=== PATIENT | female | born 1990 | race Caucasian/White ===

== ENCOUNTER 2019-06-16 14:50 | Emergency (ER) | payer MEDICAID ==
[~2019-06-16] VITALS: Ht 167.6 cm; Wt 70.5 kg
[2019-06-16] MEDS ORDERED: ketorolac tromethamine 15mg/ml inj. IM ONE (15:25)
[2019-06-16] MEDS ORDERED: triamcinolone acetonide 40mg/ml inj IM ONE (15:25)
[2019-06-16] MEDS ORDERED: LIDO700A32 TOP (15:38)
[2019-06-16 15:52] VITALS: BP 155/65
== END 2019-06-16 15:52 | disposition home or self-care (01) ==
LOC: ER 14:51
DX: M54.41 Lumbago with sciatica, right side (principal); Z79.899 Other long term (current) drug therapy
CPT/HCPCS: 96372; 99283; J1885; J3301

== ENCOUNTER 2019-12-10 09:08 | Emergency (ER) | payer MEDICAID ==
[~2019-12-10] VITALS: Ht 165.1 cm; Wt 68.2 kg
[~2019-12-10 09:08] MED LIST: LIDO700A32 TOP
[2019-12-10 09:12] VITALS: BP 125/73
[2019-12-10] MEDS ORDERED: ketorolac trometh inj. 60 MG/2 ML VIAL IM ONE (09:30)
[2019-12-10] MEDS ORDERED: HYDR-3965 PO (09:37)
[2019-12-10] MEDS ORDERED: ACYC-202 PO (09:37)
== END 2019-12-10 09:55 | disposition home or self-care (01) ==
LOC: ER 09:08
DX: B02.9 Zoster without complications (principal); M54.6 Pain in thoracic spine; Z79.899 Other long term (current) drug therapy
CPT/HCPCS: 96372; 99283; J1885

== ENCOUNTER 2021-11-07 09:10 | Emergency (ER) | payer MEDICAID ==
[~2021-11-07] VITALS: Ht 167.6 cm; Wt 77.3 kg
[2021-11-07] MEDS ORDERED: metoclopramide 5 mg/ml inj IV ONE (10:25)
[2021-11-07] MEDS ORDERED: LORazepam 2 mg/ml vial IV ONE (10:25)
[2021-11-07] MEDS ORDERED: dexamethasone sod phosphate 10mg/ml inj IV STA (10:25)
[2021-11-07] MEDS ORDERED: normal saline 1000ML IV soln IVB ONE (10:25)
--- NOTE | 2021-11-07 11:00 | NUR ---
Pt to CT
--- NOTE | 2021-11-07 11:30 | NUR ---
Pt back from CT. Warm blankets given, fluids restarted.
[2021-11-07] MEDS ORDERED: ketorolac trometh. 30mg/ml inj. IV ONE (12:20)
[2021-11-07 13:09] VITALS: BP 104/64
== END 2021-11-07 13:10 | disposition home or self-care (01) ==
LOC: ER 09:10
DX: G43.109 Migraine with aura, not intractable, without status migrainosus (principal)
CPT/HCPCS: 70450; 96361; 96365; 96375; 99284; J1100; J1885; J2060; J2765; J7030

== ENCOUNTER 2021-11-26 09:12 | Emergency (ER) | payer MEDICAID ==
[~2021-11-26] VITALS: Ht 167.6 cm; Wt 83.4 kg
[2021-11-26 10:17] VITALS: BP 122/82
[2021-11-26] MEDS ORDERED: GUAI120015 PO (10:29)
[2021-11-26] MEDS ORDERED: SODI30SP3 BOTHNARES (10:29)
== END 2021-11-26 11:02 | disposition home or self-care (01) ==
LOC: ER 09:12
DX: J06.9 Acute upper respiratory infection, unspecified (principal); Z20.822 Contact with and (suspected) exposure to COVID-19; R05.9 Cough, unspecified; R06.02 Shortness of breath; R50.9 Fever, unspecified; G43.909 Migraine, unspecified, not intractable, without status migrainosus; Z72.89 Other problems related to lifestyle; Z79.899 Other long term (current) drug therapy
CPT/HCPCS: 87635; 99283; C9803

== ENCOUNTER 2022-11-23 09:09 | Emergency (ER) | payer MEDICAID ==
[~2022-11-23] VITALS: Ht 167.6 cm; Wt 73.4 kg
[~2022-11-23 09:09] MED LIST changes: +GUAI120015 PO; +SODI30SP3 BOTHNARES
[2022-11-23] MEDS ORDERED: methylPREDNISolone sod succ 125mg/2ml vial IV ONE (09:25)
[2022-11-23] MEDS ORDERED: normal saline 1000ML IV soln IVB ONE (09:25)
[2022-11-23 09:54] LABS: URINE HCG NEGATIVE (NEG)
[2022-11-23 09:56] LABS: CLARITY,URINE CLOUDY (Clear); COLOR,URINE YELLOW (Yellow); GLUCOSE, URINE NEGATIVE (Neg); KETONES,URINE NEGATIVE (Neg); LEUKOCYTE ESTERASE ,URINE NEGATIVE (Neg); NITRITES, URINE NEGATIVE (Neg); OCCULT BLOOD,URINE MODERATE (Neg); PROTEIN,URINE NEGATIVE (Neg); UROBILINOGEN,URINE 0.2 E.U/dL (0.2-1.0)
[2022-11-23 09:59] LABS: BASOPHILS % (AUTO) 0.3 % (0-1); EOSINOPHILS # (AUTO) 0.1 X10'3 (0-0.9); EOSINOPHILS % (AUTO) 1.2 % (0-6); HEMATOCRIT 43.6 % (35.0-45.0); HEMOGLOBIN 15.2 g/dl (12.0-16.0); LYMPHOCYTES # (AUTO) 1.4 X10'3 (1.1-4.8); LYMPHOCYTES % (AUTO) 16.9 % (21-51); MEAN CORPUSCULAR HEMOGLOBIN 32.5 PG (27.0-31.0); MEAN CORPUSCULAR HGB CONC 34.7 g/dL (33.0-36.5); MEAN CORPUSCULAR VOLUME 93.7 FL (78-98); MEAN PLATELET VOLUME 7.6 FL (7.4-10.4); MONOCYTES # (AUTO) 0.5 X10'3 (0-0.9); MONOCYTES % (AUTO) 5.8 % (2-12); NEUTROPHILS # (AUTO) 6.4 X10'3 (1.8-7.7); NEUTROPHILS % (AUTO) 75.8 % (42-75); PLATELET COUNT 271 X10'3 (140-440); RED BLOOD COUNT 4.66 X10'6 (4.20-5.60); RED CELL DISTRIBUTION WIDTH 12.7 % (11.5-14.5); WHITE BLOOD COUNT 8.5 X10'3 (4.5-11.0)
[2022-11-23 10:02] LABS: SQUAMOUS EPITHELIAL CELL,UR MODERATE /LPF (FEW); UA COLLECTION TYPE CLN CATCH MIDSTREAM
[2022-11-23 10:03] LABS: BACTERIA,URINE 1+ /HPF (Neg); RBC,URINE 0-2 /HPF (0-2); WBC,URINE 0-4 /HPF (0-4)
[2022-11-23 10:15] LABS: ALBUMIN 4.4 G/DL (3.4-5.0); ALBUMIN/GLOBULIN RATIO 1.2 (1.1-1.5); ANION GAP 11 (8-16); ASPARTATE AMINO TRANSFERASE 16 U/L (10-37); BILIRUBIN,TOTAL 0.8 MG/DL (0.1-1.0); BLOOD UREA NITROGEN 11 MG/DL (7-18); BUN/CREATININE RATIO 13.3 (10.0-20.0); CALCIUM 9.1 MG/DL (8.5-10.1); CHLORIDE 104 MMOL/L (99-107); CREATININE 0.83 MG/DL (0.40-0.90); GLUCOSE 96 MG/DL (70-104); POTASSIUM 3.9 MMOL/L (3.5-5.1); SODIUM 140 MMOL/L (135-145); eGFR 79 ML/MIN
[2022-11-23 10:16] LABS: ALANINE AMINOTRANSFERASE 22 U/L (12-78); ALKALINE PHOSPHATASE 58 IU/L (46-116); LIPASE 69 U/L (73-393)
[2022-11-23] MEDS ORDERED: ketorolac trometh. 30mg/ml inj. IV ONE (10:20)
[2022-11-23] MEDS ORDERED: NAPR-56 PO (10:25)
[2022-11-23] MEDS ORDERED: ONDA4TAB12 PO (10:25)
[2022-11-23] MEDS ORDERED: HYDR-3965 PO (10:25)
[2022-11-23] MEDS ORDERED: PRED10TA23 PO (10:25)
[2022-11-23 11:41] VITALS: BP 114/72
== END 2022-11-23 11:42 | disposition home or self-care (01) ==
LOC: ER 09:09
DX: K50.10 Crohn's disease of large intestine without complications (principal); R10.84 Generalized abdominal pain; R00.2 Palpitations; G43.909 Migraine, unspecified, not intractable, without status migrainosus; Z79.899 Other long term (current) drug therapy; Z79.1 Long term (current) use of non-steroidal anti-inflammatories (NSAID); Z79.2 Long term (current) use of antibiotics
CPT/HCPCS: 36415; 80053; 81001; 81025; 83690; 85025; 96361; 96374; 96375; 99284; J1885; J2930; J7030